=== PATIENT | female | born 2005 | race Caucasian/White ===

== ENCOUNTER 2025-02-02 09:14 | Inpatient (IN) | payer MEDICAID, OTHER ==
[~2025-02-02] VITALS: Ht 162.6 cm; Wt 59.5 kg
--- NOTE | 2025-02-02 10:13 | ED.PDOC ---
SOB-HPI HPI Comments 19 y/o F, presents to the ED for CC of shortness of breath. Patient states, she has been experiencing shortness of breath with associated dizziness [id number] which has now worsened in the last x2days. Patient denies cough, fever, chills, nasal congestion, or chest pain. No other symptoms or modifying factors present at this time. 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 History: Denies all DIE CAST TECHNICIAN Hx Family History Family History: Unknown Social History Smoker: Non-Smoker Alcohol: Denies ETOH Use Drugs: Denies Drug Use Lives In: Home Constitutional: denies: chills, diaphoresis, fatigue, fever, malaise, sweats, weakness, others EENTM: denies: blurred vision, double vision, ear bleeding, ear discharge, ear drainage, ear pain, ear ringing, eye pain, eye redness, hearing loss, mouth pain, mouth swelling, nasal discharge, nose bleeding, nose congestion, nose pain, photophobia, tearing, throat pain, throat swelling, voice changes, others Respiratory: reports: shortness of breath; denies: cough, hemoptysis, orthopnea, SOB at rest, SOB with excertion, stridor, wheezing, others Cardiovascular: denies: chest pain, dizzy spells, diaphoresis, Dyspnea on exertion, edema, irregular heart beat, left arm pain, lightheadedness, palpitations, PND, syncope, others Gastrointestinal: denies: abdomen distended, abdominal pain, blood streaked bowels, constipated, diarrhea, dysphagia, difficulty swallowing, hematemesis, melena, nausea, poor appetite, poor fluid intake, rectal bleeding, rectal pain, vomiting, others Genitourinary: denies: abnormal vagina bleeding, burning, dyspareunia, dysuria, flank pain, frequency, hematuria, incontinence, pain, , vagina discharge, urgency, others Neurological: reports: dizziness; denies: fainting, headache, left sided numbness, left sided weakness, numbness, paresthesia, pre-existing deficit, right sided numbness, right sided weakness, seizure, speech problems, tingling, tremors, weakness, others Musculoskeletal: denies: back pain, gout, joint pain, joint swelling, muscle pain, muscle stiffness, neck pain, others Integumetry: denies: bruises, change in color, change in hair/nails, dryness, laceration, lesions, lumps, rash, wounds, others Allergic/Immunocompromised: denies: Difficulty Healing, Frequent Infections, Hives, Itching, others Hematologic/Lymphatic: denies: anemia, blood clots, easy bleeding, easy bruising, swollen glands, others Endocrine: denies: excessive hunger, excessive sweating, excessive thirst, excessive urination, flushing, intolerance to cold, intolerance to heat, unexplained weight gain, unexplained weight loss, others Psychiatric: denies: anxiety, bipolar disorder, depression, hopeless, panic disorder, schizophrenia, sleepless, suicidal, others All Other Systems: Reviewed and Negative Physical Exam General Appearance: No Apparent Distress, Normal HEENT: Normal ENT Inspection, Pharynx Normal Neck: Full Range of Motion, Non-Tender, Normal, Normal Inspection Respiratory: Chest Non-Tender, Lungs Clear, No Accessory Muscle Use, No Respiratory Distress, Normal Breath Sounds Cardiovascular: No Edema, No Murmur, No Gallop, Normal Peripheral Pulses, Regular Rate/Rhythm Breast Exam: Deferred Gastrointestinal: No Organomegaly, Non Tender, No Pulsatile Mass, Normal Bowel Sounds, Soft Genitalia: Deferred Pelvic: Deferred Rectal: Deferred Extremities: No calf tenderness, Normal capillary refill, Normal inspection, Normal range of motion, Non-tender, No pedal edema Musculoskeletal : Apperance: Normal Neurologic: Alert, exhaust and muffler fitter II-XII nml as Tested, No Motor Deficits, Normal Affect, Normal Mood, No Sensory Deficits Cerebellar Function: Normal Reflexes: Normal Skin: Dry, Normal Color, Warm Lymphatic: No Adenopathy Was a procedure done? Was a procedure done?: No Differential Dx Differential Diagnosis: Asthma, Bronchitis, Pneumonia, Sinusitis, Pharyngitis, URI X-Ray, Labs, Meds, VS Vital Signs Date Time Temp Pulse Resp B/P (MAP) Pulse Ox O2 Delivery O2 Flow Rate FiO2 02/02/25 11:42 69 02/02/25 10:45 80 02/02/25 09:30 97.8 82 16 130/78 (95) 100 97.8 Lab Test 02/02/25 11:06 02/02/25 10:10 Range/Units Troponin I High Sensitivity < 3 L < 3 L </=34 ng/L White Blood Count 7.9 4.4-10.8 10^3/uL Red Blood Count 4.64 4.0-5.20 10^6/uL Hemoglobin 14.4 12.2-16.2 g/dL Hematocrit 42.5 36.0-46.0 % Mean Corpuscular Volume 91.6 80.0-100.0 fL Mean Corpuscular Hemoglobin 31.0 28.0-32.0 pg Mean Corpuscular Hemoglobin Concent 33.8 32.0-36.0 g/dL Red Cell Distribution Width 13.2 11.8-14.3 % Platelet Count 302 140-450 10^3/uL Mean Platelet Volume 8.6 6.9-10.8 fL Neutrophils (%) (Auto) 72.0 37.0-80.0 % Lymphocytes (%) (Auto) 21.9 10.0-50.0 % Monocytes (%) (Auto) 5.3 0.0-12.0 % Eosinophils (%) (Auto) 0.3 0.0-7.0 % Basophils (%) (Auto) 0.5 0.0-2.0 % Neutrophils # (Auto) 5.7 1.6-8.6 10 ^3/uL Lymphocytes # (Auto) 1.7 0.4-5.4 10 ^3/uL Monocytes # (Auto) 0.4 0-1.3 10 ^3/uL Eosinophils # (Auto) 0 0-0.8 10 ^3/uL Basophils # (Auto) 0 0-0.2 10 ^3/uL Nucleated Red Blood Cells 0.0 % Sodium Level 139 136-145 mmol/L Potassium Level 3.8 3.5-5.1 mmol/L Chloride Level 105 98-107 mmol/L Carbon Dioxide Level 26 20-31 mmol/L Anion Gap 8 5-15 Blood Urea Nitrogen 9 9-23 mg/dL Creatinine 0.92 0.550-1.02 mg/dL Glomerular Filtration Rate Calc 91 >90 mL/min BUN/Creatinine Ratio 9.8 L 10.0-20.0 Serum Glucose 98 74-106 mg/dL Calcium Level 10.6 H 8.7-10.4 mg/dL [place] [id number] Ph: [phone] DIAGNOSTIC IMAGING Diagnostic Imaging Report : [id number] Signed PATIENT: YOUSIF PHILLIPS ACCT: [id number] UNIT: [id number] : 2005 LOC: ER ROOM / BED: / AGE / SEX: 19 / F ADM STATUS: REG ER SERVICE 1000 ORDERING PHYSICIAN: DANNA GUZMÁN MD PROCEDURE(s): CXRP - CHEST PORTABLE REASON: chest pain, sob ORDER NUMBER(s): [id number], ACCESSION NUMBER(s): [id number] CHEST RADIOGRAPH Indication: chest pain, sob Technique: Single frontal view of the chest was obtained COMPARISON: None FINDINGS: Lines and Tubes: None Lungs: Clear Pleura: No effusion. No pneumothorax. Cardiomediastinal contours: Unremarkable Bones: Unremarkable IMPRESSION: No acute disease. ATED BY: DAMION ANDREWS MD DICTATED DATE/TIME: 02/02/25 1026 SIGNED BY: DAMION ANDREWS MD SIGNED DATE/TIME: 02/02/25 1026 CC: Time of 1ST Reevaluation: 10:30 Reevaluation 1ST: Unchanged Patient Education/Counseling: Diagnosis, Treatment Family Education/Counseling: No Family Present SEPSIS Sepsis Screen Date sepsis recognized/suspect: Feb 02, 2025 Time Sepsis recognized/suspect: 929 Recent Procedure: No On Antibiotic Therapy: No Respiratory Rate >20: No Heart Rate >90: No Temp<36 C (96.8 F) or >38.3 C: No SBP <90 or MAP <65 mmHG: No New Acute Mental Status Change: No Is the patient on CPAP, BIPAP,: No Physician Orders Chest Portable (02/02/25 10:00) Troponin-I Hs (02/02/25 13:00) Electrocardigram (02/02/25 13:00) Vital Signs Date Time Temp Pulse Resp B/P (MAP) Pulse Ox O2 Delivery O2 Flow Rate FiO2 02/02/25 11:42 69 02/02/25 10:45 80 7/15/25 09:30 97.8 82 16 130/78 (95) 100 97.8 Laboratory Tests Test 02/02/25 10:10 White Blood Count 7.9 10^3/uL (4.4-10.8) Departure 1 Departure Time of Disposition: 12:54 (Patient has a reported history of leaky valves and complex cardiac history and this was to follow up with Cardiology but does not have an appointment till the end of February. Given this history and concern we will admit patientPatient presented with chest pain that was concerning for possible STEMI, ACS, PE, Pneumonia, Muscle Strain, COPD, Dissection. Data: 1. I ordered and reviewed the result of at least 3 labs including a CBC, BMP, and Troponin. 2. I independently interpreted the following tests: EKG which shows sinus arrhythmia and Chest X-ray which shows benign chest.Risk:This patient has a high risk of morbidity due to further diagnostic testing or treatment and may suffer from an acute cardiac or respiratory disorder. Workup reveals concern for ACS and patient should be admitted for further workup and possible expert consultation. ) Impression: Primary Impression: Acute chest pain Additional Impressions: Shortness of breath Palpitations Disposition: ADMITTED INPATIENT Admit to: Med Surg Condition: Serious Critical Care Note Critical Care Time?: Yes Critical care comment: Acute chest pain Authorized and Performed by: Danna Guzmán MD Total critical care time: Approximately 37 minutes Due to a high probability of clinically significant, life threatening deterioration, the patient required my highest level of preparedness to intervene emergently and I personally spent this critical care time directly and personally managing the patient. This critical care time included obtaining a history; examining the patient; pulse oximetry; ordering and review of studies; arranging urgent treatment with development of a management plan; evaluation of patient's response to treatment; frequent reassessment; and, discussions with other providers. This critical care time was performed to assess and manage the high probability of imminent, life-threatening deterioration that could result in multi-organ failure. It was exclusive of separately billable procedures and treating other patients and teaching time. Please see my other sections and the rest of the note for further information on patient assessment and treatment. Stability Stability form required: No Heart Score Heart Score: Heart Score Response (Comments) Value History N/A 0 EKG N/A 0 Age N/A 0 Risk Factors N/A 0 Troponin N/A 0 Total 0 I personally scribed for DANNA GUZMÁN MD ([email or web address]) on 02/02/25 at 10:12. Electronically submitted by Tisha Lazaro ([email or web address]). I personally scribed for DANNA GUZMÁN MD ([email or web address]) on 02/02/25 at 11:35. Electronically submitted by Tisha Lazaro ([email or web address]). DANNA GUZMÁN MD Feb 02, 2025 10:12
[2025-02-02 10:17] LABS: Hematocrit 42.5 % (36.0-46.0); Hemoglobin 14.4 g/dL (12.2-16.2); Mean Corpuscular Hemoglobin 31.0 pg (28.0-32.0); Mean Corpuscular Volume 91.6 fL (80.0-100.0); Nucleated Red Blood Cells % 0.0 %
--- NOTE | 2025-02-02 10:28 | DVH ---
CHEST RADIOGRAPH Indication: chest pain, sob Technique: Single frontal view of the chest was obtained COMPARISON: None FINDINGS: Lines and Tubes: None Lungs: Clear Pleura: No effusion. No pneumothorax. Cardiomediastinal contours: Unremarkable Bones: Unremarkable IMPRESSION: No acute disease.
[2025-02-02 10:34] LABS: Chloride 105 mmol/L (98-107); Potassium 3.8 mmol/L (3.5-5.1); Sodium 139 mmol/L (136-145)
[2025-02-02 10:35] LABS: Anion Gap 8 (5-15); Carbon Dioxide 26 mmol/L (20-31)
[2025-02-02 10:36] LABS: Calcium 10.6 mg/dL (8.7-10.4)
[2025-02-02 10:40] LABS: BUN/Creatinine Ratio 9.8 (10.0-20.0); Blood Urea Nitrogen 9 mg/dL (9-23); Glucose 98 mg/dL (74-106)
--- NOTE | 2025-02-02 10:47 | ECG ---
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
--- NOTE | 2025-02-02 11:43 | ECG ---
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
--- NOTE | 2025-02-02 19:05 | ECG ---
[facility] Test Date: 2025-02-02 Test Time: 13:41:37 Pat Name: YOUSIF PHILLIPS Department: ER Room: Gender: F Development Manager: GAYATRI : 2005 Requested By: DANNA STEWART Order Number: [id number] Reading MD: Measurements Intervals [place] Rate: 61 P: 67 AK: 137 QRS: 75 QRSD: 91 T: 54 QT: 423 QTc: 426 Interpretive Statements Sinus arrhythmia RSR' in V1 or V2, right VCD or RVH Please click the below link to view image of tracing.
--- NOTE | 2025-02-02 22:51 | DVHHP2 ---
History of Present Illness History of Present Illness This is a 19-year-old female with past medical history of Anxiety disorder, Migraine not on any medication came to ED with the complain of retrosternal chest pain for 2 weeks which is worsen for last 3 days, localized, 5-7/10 intensity, aggravated on exertion and relieved on rest. Patient also complain of chest pain associated with shortness of breaths but no wheezing. She had a history of syncope 1 years ago. [facility] reported pulmonary and mitral valvular disease. H/O anxiety disorder/panic disorder seen by psychiatrist who prescribed Desvenlafaxine and stopped 2 months ago due to side effect of the medication. Patient never follow-up with animal care taker. Currently denies any cough, shortness of breaths, headache, photophobia, abdominal pain, dysuria, any focal weakness, fever. Past Medical History: anxiety disorder, migraine Surgical History: Denies all surgeries OBGYN History: LMP 3 weeks back Family History: Unknown Social History Smoker: Non-Smoker Alcohol: Denies ETOH Use Drugs: Denies Drug Use Lives In: Home Allergy: No known allergies PCP: Not selected Review of Systems Constitutional: No: Fever, Chills, Sweats, Weakness, Malaise, Other Eyes: No: Pain, Vision change, Conjunctivae inflammation, Eyelid inflammation, Other, Redness ENT: No: Ear pain, Ear discharge, Nose pain, Nose discharge, Nose congestion, Mouth pain, Mouth swelling, Throat pain, Throat swelling, Other Respiratory: SOB with excertion; No: Cough, Dry, Shortness of breath, Wheezing, Hemoptysis, Pleuritic Pain, Sputum, Wheezing, Other Cardiovascular: Chest Pain; No: Palpitations, Orthopnea, Paroxysmal Noc. Dy spnea, Edema, Lt Headedness, Other Gastrointestinal: No: Nausea, Vomiting, Abdominal Pain, Diarrhea, Constipation, Melena, Hematochezia, Other Genitourinary: No Dysuria, No Frequency, No Incontinence, No Hematuria, No Retention, No Other Musculoskeletal: No: other, neck pain, shoulder pain, arm pain, back pain, hand pain, leg pain, foot pain Skin: No: Rash, Lesions, Jaundice, Bruising, Other Neurological: No: Weakness, Numbness, Incoordination, Change in speech, Confusion, Seizures, Other Allergies: Coded Allergies: NO KNOWN ALLERGIES (Unverified , 02/02/25) Exam Vital Signs Vital Signs Date Time Temp Pulse Resp B/P (MAP) Pulse Ox O2 Delivery O2 Flow Rate FiO2 02/02/25 18:15 Room Air* 0 21 02/02/25 17:47 97.6 89 17 125/76 (92) 100 97.6 General Appearance: Alert, Oriented X3, Cooperative, No acute distress HEENT: Atraumatic, PERRLA, EOMI Respiratory: Clear to auscultation, Normal air movement Cardiovascular: Regular rate, Normal S1, Normal S2 Abdominal: Normal bowel sounds, No tenderness, No hepatospenomegaly, No masses Extremities: No clubbing, No cyanosis, No edema, Normal pulses Skin: No breakdown Neuro: Normal gait, Normal speech, Strength at 5/5 X4 ext Labs/Xrays Labs Test 02/02/25 13:28 02/02/25 10:10 Range/Units Troponin I High Sensitivity < 3 L </=34 ng/L White Blood Count 7.9 4.4-10.8 10^3/uL Red Blood Count 4.64 4.0-5.20 10^6/uL Hemoglobin 14.4 12.2-16.2 g/dL Hematocrit 42.5 36.0-46.0 % Mean Corpuscular Volume 91.6 80.0-100.0 fL Mean Corpuscular Hemoglobin 31.0 28.0-32.0 pg Mean Corpuscular Hemoglobin Concent 33.8 32.0-36.0 g/dL Red Cell Distribution Width 13.2 11.8-14.3 % Platelet Count 302 140-450 10^3/uL Mean Platelet Volume 8.6 6.9-10.8 fL Neutrophils (%) (Auto) 72.0 37.0-80.0 % Lymphocytes (%) (Auto) 21.9 10.0-50.0 % Monocytes (%) (Auto) 5.3 0.0-12.0 % Eosinophils (%) (Auto) 0.3 0.0-7.0 % Basophils (%) (Auto) 0.5 0.0-2.0 % Neutrophils # (Auto) 5.7 1.6-8.6 10 ^3/uL Lymphocytes # (Auto) 1.7 0.4-5.4 10 ^3/uL Monocytes # (Auto) 0.4 0-1.3 10 ^3/uL Eosinophils # (Auto) 0 0-0.8 10 ^3/uL Basophils # (Auto) 0 0-0.2 10 ^3/uL Nucleated Red Blood Cells 0.0 % Sodium Level 139 136-145 mmol/L Potassium Level 3.8 3.5-5.1 mmol/L Chloride Level 105 98-107 mmol/L Carbon Dioxide Level 26 20-31 mmol/L Anion Gap 8 5-15 Blood Urea Nitrogen 9 9-23 mg/dL Creatinine 0.92 0.550-1.02 mg/dL Glomerular Filtration Rate Calc 91 >90 mL/min BUN/Creatinine Ratio 9.8 L 10.0-20.0 Serum Glucose 98 74-106 mg/dL Calcium Level 10.6 H 8.7-10.4 mg/dL SEPSIS Sepsis Screen Date sepsis recognized/suspect: Feb 02, 2025 Time Sepsis recognized/suspect: 1908 Recent Procedure: No On Antibiotic Therapy: No Respiratory Rate >20: No Heart Rate >90: No Temp<36 C (96.8 F) or >38.3 C: No SBP <90 or MAP <65 mmHG: No New Acute Mental Status Change: No Is the patient on CPAP, BIPAP,: No Physician Orders Admit (02/02/25 22:48) Nitroglycerin Sublingual (Ntrostat Subli (02/02/25 23:00) Morphine Sulfate Injection (02/02/25 23:00) Oxygen By Nasal Cannula (02/02/25 22:48) Stat Ekg For Chest Pain (02/02/25 22:48) Notify Md Of Changes From Base (02/02/25 22:48) Cocoa Bean Cleaner For 24 Hours (02/02/25 22:48) Emergency Dysrhythmia Protocol (02/02/25 22:48) Rhythm Strips Once Every Shift (02/02/25 22:48) Vital Signs Date Time Temp Pulse Resp B/P (MAP) Pulse Ox O2 Delivery O2 Flow Rate FiO2 02/02/25 18:15 Room Air* 0 21 02/02/25 17:47 97.6 89 17 125/76 (92) 100 97.6 Assessment/Plan Assessment/Plan # CHEST PAIN RULE OUT ACS POSSIBLE UNSTABLE ANGINA -patient came with chest pain and exertional SOB -EKG:, sinus rhythm, HR 61 QTC 426 -CXR-No acute disease. -Troponin x 3-negative (<3 ,<3, <3) -Aspirin 81 mg p.o. daily -Atorvastatin 40 mg p.o. daily -BNP, HBA1C, Lipid profile, uds, TSH -Echo -Cardiology consult # ANXIETY DISORDER -Stopped Desvenlafaxine due to side effect of medication -Psychiatry follow-up outpatient # HYPERCALCEMIA LIKELY DEHYDRATION -Calcium level 10.6 -Encourage oral fluid intake -BMP #H/o Pulmonary and Mitral regurgitation -As per pt, echo done and mentioned valvular heart disease -Echo order DIET: Regular GI prophylaxis: Famotidine 20 mg p.o. b.i.d. DVT prophylaxis: Patient ambulating Goals of care discussions, more than 26 minute spent. Full code status. Case discussed with Dr. Rao Plan discussed with: Patient, Other (Nurse) My Orders Orders - MERT ROSADO Procedure Category Date Status Time Admit ADMIT 02/02/25 Transmitted 22:48 Nitroglycerin [facility] 02/02/25 Transmitted Sublingual (Ntrostat 23:00 Morphine Sulfate PHA 02/02/25 Transmitted Injection 23:00 Oxygen By Nasal RT 02/02/25 Transmitted Cannula 22:48 Stat Ekg For Chest [facility] 02/02/25 Transmitted Pain 22:48 Notify Md Of Changes [facility] 02/02/25 Transmitted From Base 22:48 Cocoa Bean Cleaner For [facility] 02/02/25 Transmitted 24 Hours 22:48 Emergency Dysrhythmia [facility] 02/02/25 Transmitted Protocol 22:48 Rhythm Strips Once [facility] 02/02/25 Transmitted Every Shift 22:48 Date of Service: Feb 02, 2025 Billing Provider: MERT RAO Common Visit Codes: [id number] INP/OBS CARE (HIGH) Secondary Visit Codes: [id number] CARE PLAN 30 MINUTES MERT ROSADO Feb 02, 2025 22:51
[2025-02-02] MEDS ORDERED: NITROGLYCERIN 0.4 MG SL TAB SL PRN (23:00)
[2025-02-02] MEDS ORDERED: MORPHINE SULFATE INJ 2 MG/ml SYRG IV PRN (23:00)
[2025-02-03] VITALS (8 sets, daily range): BP systolic 102–116; BP diastolic 66–79; PULSE 56–76; RESP 16–21; TEMP 97.8–98.6; O2SAT 93–100
[2025-02-03] MEDS: ATORVASTATIN 20 MG TAB PO ONE (00:17)
[2025-02-03 06:57] LABS: Alanine Aminotransferase 11 U/L (7-40); Albumin 4.7 g/dL (3.2-4.8); Alkaline Phosphatase 69 U/L (46-116); Anion Gap 10 (5-15); BUN/Creatinine Ratio 11.5 (10.0-20.0); Calcium 10.0 mg/dL (8.7-10.4); Carbon Dioxide 24 mmol/L (20-31); Chloride 106 mmol/L (98-107); Cholesterol 160 mg/dL (< 200); Glucose 99 mg/dL (74-106); HDL Cholesterol 50 mg/dL (40-59); Potassium 3.8 mmol/L (3.5-5.1); Sodium 140 mmol/L (136-145); Total Protein 7.1 g/dL (5.7-8.2); Triglycerides 60 mg/dL (< 150)
[2025-02-03 06:58] LABS: Bilirubin, Total 0.5 mg/dL (0.2-1.0)
[2025-02-03 06:59] LABS: Blood Urea Nitrogen 9 mg/dL (9-23)
--- NOTE | 2025-02-03 10:48 | DVHINCON2 ---
Date Seen: Feb 03, 2025 Referring Physician MD Porfirio resident Reason for Consultation Chest pain, rule out ACS History of Present Illness This is a 19-year-old female patient who presents to emergency room with chief complaint of chest pain and shortness of breath for approximately two weeks. The patient reports that she has been experiencing intermittent chest pain for the last two weeks and decided to come to the emergency room for further evaluation. She describes the pain as unprovoked, intermittent, dull in nature, midsternal and nonradiating. Associated symptoms include shortness of breath. Initial twelve lead electrocardiogram reveals normal sinus rhythm without any significant ST segment changes. Serial troponin levels have been negative. Significant past medical history includes "leaky valves" as per patient report and migraines. Past Medical History Past medical history reviewed. No other significant than mentioned above. Past Surgical History Denies any previous surgeries Family History: Patient reports no known family medical history. Family History Family history reviewed. Social History Denies the use of tobacco, alcohol or illicit drugs. Allergies: Coded Allergies: NO KNOWN ALLERGIES (Unverified , 02/02/25) Home Meds No Active Prescriptions or Reported Meds Home Meds Denies taking any prescribed medications Current Medications Current Medications Medications (Trade) Dose Ordered Sig/[place] Route PRN Reason Start Time Stop Time Status Last Admin Nitroglycerin (Ntrostat Sublingual) 0.4 mg Q5MINP PRN SL FOR CHEST PAIN 02/02/25 23:00 02/03/25 10:07 DC Morphine Sulfate 2 mg Q30M PRN IV FOR CHEST PAIN 02/02/25 23:00 02/03/25 10:07 DC Aspirin 81 mg DAILY PO 02/03/25 10:00 02/03/25 09:36 Atorvastatin Calcium (Lipitor) 40 mg HS PO 02/03/25 22:00 Review of Systems Constitutional: No symptom reported Ears, Nose, & Throat: No symptom reported Eyes: No symptom reported Neurological: No symptoms reported Pulmonary/Respiratory: Shortness of breath Cardiovascular: Chest pain Gastrointestinal: No symptom reported Genitourinary: No symptom reported Musculoskeletal: No symptom reported Skin: No symptom reported Psychiatric: No symptom reported Endocrine: No symptom reported Hematologic/Lymphatic: No symptom reported Vital Signs Vital Signs Date Time Temp Pulse Resp B/P (MAP) Pulse Ox O2 Delivery O2 Flow Rate FiO2 02/03/25 08:47 97.8 56 21 112/72 (85) 99 97.8 02/03/25 02:24 Room Air* 0 21 Physical Exam General Appearance: Cooperative. Well-developed. Well-nourished. No acute distress. Pulmonary/Respiratory: Clear, bilateral breaths sounds. Cardiovascular/Chest: Regular rate and rhythm. Peripheral Pulses: 2+ Radial (R). 2+ Radial (L). 2+ Pedal (R). 2+ Pedal (L) Abdominal Exam: Normal bowel sounds. Ankle Exam: Negative ankle edema Lower extremities: Negative lower extremity edema Neuro/Mental Status: A/OX4, coherent. Thoughts/Psych: Normal thought pattern. Appropriate mood and affect. Good judgment and insight. Appearance: No acute distress. Skin Exam: Normal inspection. Normal color. Warm and dry. Labs/Diagnostic Data Labs Test 02/03/25 05:50 02/02/25 13:28 02/02/25 10:10 Range/Units Sodium Level 140 136-145 mmol/L Potassium Level 3.8 3.5-5.1 mmol/L Chloride Level 106 98-107 mmol/L Carbon Dioxide Level 24 20-31 mmol/L Anion Gap 10 5-15 Blood Urea Nitrogen 9 9-23 mg/dL Creatinine 0.78 0.550-1.02 mg/dL Glomerular Filtration Rate Calc 111 >90 mL/min BUN/Creatinine Ratio 11.5 10.0-20.0 Serum Glucose 99 74-106 mg/dL Hemoglobin A1c 5.4 <5.7 % A1C Calcium Level 10.0 8.7-10.4 mg/dL Total Bilirubin 0.5 0.2-1.0 mg/dL Aspartate Amino Transferase (AST) 17 13-40 U/L Alanine Aminotransferase (ALT) 11 7-40 U/L Alkaline Phosphatase 69 46-116 U/L B-Type Natriuretic Peptide 6.46 0-100 pg/mL Total Protein 7.1 5.7-8.2 g/dL Albumin 4.7 3.2-4.8 g/dL Triglycerides Level 60 < 150 mg/dL Cholesterol Level 160 < 200 mg/dL LDL Cholesterol 106 H < 100 mg/dL HDL Cholesterol 50 40-59 mg/dL Thyroid Stimulating Hormone (TSH) 1.24 0.55-4.78 uIU/mL Troponin I High Sensitivity < 3 L </=34 ng/L White Blood Count 7.9 4.4-10.8 10^3/uL Red Blood Count 4.64 4.0-5.20 10^6/uL Hemoglobin 14.4 12.2-16.2 g/dL Hematocrit 42.5 36.0-46.0 % Mean Corpuscular Volume 91.6 80.0-100.0 fL Mean Corpuscular Hemoglobin 31.0 28.0-32.0 pg Mean Corpuscular Hemoglobin Concent 33.8 32.0-36.0 g/dL Red Cell Distribution Width 13.2 11.8-14.3 % Platelet Count 302 140-450 10^3/uL Mean Platelet Volume 8.6 6.9-10.8 fL Neutrophils (%) (Auto) 72.0 37.0-80.0 % Lymphocytes (%) (Auto) 21.9 10.0-50.0 % Monocytes (%) (Auto) 5.3 0.0-12.0 % Eosinophils (%) (Auto) 0.3 0.0-7.0 % Basophils (%) (Auto) 0.5 0.0-2.0 % Neutrophils # (Auto) 5.7 1.6-8.6 10 ^3/uL Lymphocytes # (Auto) 1.7 0.4-5.4 10 ^3/uL Monocytes # (Auto) 0.4 0-1.3 10 ^3/uL Eosinophils # (Auto) 0 0-0.8 10 ^3/uL Basophils # (Auto) 0 0-0.2 10 ^3/uL Nucleated Red Blood Cells 0.0 % Assessment Chest pain, likely noncardiac Rule out structural heart disease Migraine Plan/Recommendation We will continue with the following plan/recommendations (Dr. Larson): We will proceed with obtaining a transthoracic echocardiogram to evaluate cardiac function. HEART score: 0 points. Given patient clinical presentation, unremarkable 12 lead electrocardiogram, and negative troponin level, doubt ACS. In the setting of an unremarkable transthoracic echocardiogram, there is no further inpatient cardiac workup indicated at this time. The patient may proceed with outpatient cardiac workup if deemed necessary. Thank you for allowing us to care for this patient. Please call with any questions or concerns. Critical care time spent: 44 minutes This medical document was created using an electronic medical record system with voice recognition software and computerized dictation system. Although this document has been carefully reviewed, there might still be some phonetic and typographical errors. Occasional wrong-word or ``sound-alike substitutions may have occurred due to the inherent limitations of voice recognition software. These areas are purely typographical due to imperfections of the software programs and do not reflect any compromise in the patient's medical care. Please read the chart carefully and recognize, using context, where these substitutions have occurred. Plan discussed with: Patient NYHA Physical activity limitations: NA Date of Service: Feb 03, 2025 Billing Provider: BENJAMIN LYONS Cardiology Common Codes: 56511-GMHBVBP INP/OBS CARE (High) Cardiology Consultation Codes: 27934-RFDNYRDQO CONSULT <45MIN BENJAMIN LYONS Feb 03, 2025 10:47
--- NOTE | 2025-02-03 16:52 | DVHPNRES ---
Progress Note Date Seen: Feb 03, 2025 Resident Creating Document: BERTHA URIAS RESIDENT Medical Necessity Reason Pt with a Central, PICC or Fol: No Subjective Review of Systems Patient is a 19-year-old female with prior medical history of chronic migraines, generalized anxiety disorder, panic attacks, refers tricuspid and pulmonary regurgitation , who presented to the ED with chief complaint of chest pain and shortness of breath. Patient states she she has had chest pain described as intermittent retrosternal, ache-like, intensity of 5/10, non-radiating, is worse in the mornings, aggravated by physical activity and relieved by rest. States this is associated with shortness of breath usually on exertion, but day before presentation was present rest, which prompted her to seek medical care. She denies nausea, vomiting, fever, palpitations, dizziness, and loss of consciousness. Vitals were within normal limits. Initial 12 lead EKG shows normal sinus rhythm without ST changes. Initial labs WBC 7.9, hemoglobin 14.4, hematocrit 42.5, MCV 91.6, MCH 31.0, platelets 302, D-dimer <0.19, troponins negative, and TSH 1.24. Chest x-ray no acute disease. Patient was admitted for further workup and monitoring. Surgical: None Social: Denies drug and tobacco use. Refers occasional alcohol use. Patient seen at bedside. States she feels well, is eating, and ambulating without dizziness or difficulty. Currently denies chest pain, shortness of breath, palpitations, dizziness, and symptoms. She was seen by Cardiology who state that in the setting of an unremarkable transthoracic echocardiogram, there is no further inpatient cardiac workup indicated and patient may proceed with outpatient cardiac workup if deemed necessary. We will continue to monitor, possible discharge tomorrow pending echocardiogram report. Review of systems: Constitutional: Denies weight loss, fever and chills. HEENT: Denies changes in vision and hearing. Respiratory: Denies shortness of breath and cough Cardiovascular: Denies chest discomfort or palpitations GI: Denies abdominal distention, abdominal pain, diarrhea : Denies dysuria and urinary frequency. Musculoskeletal: Denies myalgias and joint pain Skin: Denies rash and pruritus. Neurological: denies dizziness headache vision or hearing problems Objective vital signs Vital Sign Date Time Temp Pulse Resp B/P (MAP) Pulse Ox O2 Delivery O2 Flow Rate FiO2 02/03/25 12:53 98.6 66 16 114/79 (91) 99 98.6 02/03/25 08:00 Room Air* 0 21 Total Intake and Output 02/02/25 02/02/25 02/03/25 15:00 23:00 07:00 Intake Total 0 ml Balance 0 ml medications Current Medications Medications Dose Ordered Sig/[place] Route Start Time Stop Time Status Last Admin Dose Admin Aspirin 81 mg DAILY PO 02/03/25 10:00 02/03/25 09:36 81 MG Atorvastatin Calcium 40 mg HS PO 02/03/25 22:00 Examination General: The patient alert and oriented in person place and time. Patient following commands HEENT: Normocephalic a, atraumatic, moist mucous membrane Respiratory/pulmonary: Clear lungs bilaterally, vesicular murmurs present in almost all lung moe, no associated crackles or wheezes. Cardiovascular: Normal rate, S3 present Abdomen: Abdomen nondistended, there is no pain to palpation in any of the abdominal quadrants, no palpable masses. Extremities: there is no peripheral edema present at the lower extremities. Peripheral pulses 3+ radial right, 3+ radials soft. 3+ dorsalis pedis right. 3+ dorsalis pedis left Skin: No rashes or pruritus, there is no sacral edema present at this time. Neurological: Intact cranial nerves with no focal neurologic deficits laboratory and microbiology Laboratory Tests 02/03/25 05:50 02/02/25 10:10 Test 02/03/25 05:50 Range/Units Serum Glucose 99 74-106 mg/dL Problem List/Assessment/Plan Problem List/Assessment/Plan Assessment and Plan: Acute Chest Pain, Ruled out ACS -Aspirin: 81 mg PO daily -Atorvastatin: 40 mg PO -Pending echocardiogram report -Per cardiology: state that in the setting of an unremarkable transthoracic echocardiogram, there is no further inpatient cardiac workup indicated and patient may proceed with outpatient cardiac workup if deemed necessary. History of Valvular Disease History of General Anxiety History of Chronic Migraines DVT prophylaxis: Ambulating Case discussed with Dr. Venegas. Goals of care discussed with patient for over 20 minutes. She states she understands and agrees. Plan discussed with: Patient Date of Service: Feb 03, 2025 Billing Provider: EDA VENEGAS MD Common Visit Codes: [id number] INP/OBS CARE(HIGH) BERTHA URIAS RESIDENT Feb 03, 2025 16:52 EDA VENEGAS MD Feb 03, 2025 22:08
[2025-02-03 17:35] LABS: Urine Protein, UAD Negative (Negative)
[2025-02-03 18:19] LABS: Amphetamine Screen, Urine Neg (NEGATIVE); Barbiturate Scree,Urine Neg (NEGATIVE); Benzodiazephine Screen, Urine Neg (NEGATIVE); Cannabinoid Screen, Urine Neg (NEGATIVE); Cocaine Screen, Urine Neg (NEGATIVE); Opiate Scree,Urine Neg (NEGATIVE); Phencyclidine Screen, Urine Neg (NEGATIVE)
[2025-02-03] MEDS: ATORVASTATIN 20 MG TAB PO SCH (21:19)
[2025-02-04 01:00] VITALS: BP 121/74; PULSE 53; RESP 17; TEMP 97.8; O2SAT 98
[2025-02-04 05:00] VITALS: BP 111/74; PULSE 55; RESP 17; TEMP 98; O2SAT 100
[2025-02-04 05:18] LABS: Hematocrit 41.3 % (36.0-46.0); Hemoglobin 13.7 g/dL (12.2-16.2); Mean Corpuscular Hemoglobin 30.6 pg (28.0-32.0); Mean Corpuscular Volume 92.0 fL (80.0-100.0); Nucleated Red Blood Cells % 0.1 %
[2025-02-04 05:29] LABS: Anion Gap 9 (5-15); Carbon Dioxide 27 mmol/L (20-31); Chloride 106 mmol/L (98-107); Potassium 3.8 mmol/L (3.5-5.1); Sodium 142 mmol/L (136-145)
[2025-02-04 05:30] LABS: Calcium 10.3 mg/dL (8.7-10.4)
[2025-02-04 05:35] LABS: BUN/Creatinine Ratio 12.5 (10.0-20.0); Blood Urea Nitrogen 11 mg/dL (9-23); Glucose 93 mg/dL (74-106)
[2025-02-04 08:00] VITALS: PULSE 91
--- NOTE | 2025-02-04 08:14 | ECG ---
[facility] Test Date: 2025-02-03 Test Time: 20:00:40 Pat Name: YOUSIF PHILLIPS Department: Respiratoy Room: [facility]6T B Gender: F Pediatric Associate: LAN : 2005 Requested By: MERT ROSADO Order Number: [id number] Reading MD: Measurements Intervals [place] Rate: 61 P: 45 WV: 138 QRS: 59 QRSD: 93 T: 56 QT: 401 QTc: 404 Interpretive Statements Sinus rhythm Please click the below link to view image of tracing.
[2025-02-04 09:00] VITALS: BP 107/63; PULSE 52; RESP 18; TEMP 98.1; O2SAT 99
[2025-02-04] MEDS ORDERED: FAMO20TA10 PO (10:49)
[2025-02-04 12:30] VITALS: BP 119/70; PULSE 71; RESP 18; TEMP 97.6; O2SAT 98
[2025-02-04 12:58] VITALS: TEMP 36.7
--- NOTE | 2025-02-04 16:48 | DVHDSRES ---
Discharge Summary Date of Admission Resident Creating Document: BETRHA URIAS RESIDENT Feb 02, 2025 at 22:48 Date of Discharge: Feb 04, 2025 Admitting Diagnosis Acute Chest Pain Wounds: None Labs/Diagnostic Data: Laboratory Results Test 02/04/25 04:15 02/03/25 17:30 02/03/25 10:55 02/03/25 05:50 White Blood Count 7.5 10^3/uL (4.4-10.8) Red Blood Count 4.48 10^6/uL (4.0-5.20) Hemoglobin 13.7 g/dL (12.2-16.2) Hematocrit 41.3 % (36.0-46.0) Mean Corpuscular Volume 92.0 fL (80.0-100.0) Mean Corpuscular Hemoglobin 30.6 pg (28.0-32.0) Mean Corpuscular Hemoglobin Concent 33.2 g/dL (32.0-36.0) Red Cell Distribution Width 13.0 % (11.8-14.3) Platelet Count 286 10^3/uL (140-450) Mean Platelet Volume 8.8 fL (6.9-10.8) Neutrophils (%) (Auto) 43.6 % (37.0-80.0) Lymphocytes (%) (Auto) 47.1 % (10.0-50.0) Monocytes (%) (Auto) 7.9 % (0.0-12.0) Eosinophils (%) (Auto) 0.9 % (0.0-7.0) Basophils (%) (Auto) 0.5 % (0.0-2.0) Neutrophils # (Auto) 3.3 10 ^3/uL (1.6-8.6) Lymphocytes # (Auto) 3.5 10 ^3/uL (0.4-5.4) Monocytes # (Auto) 0.6 10 ^3/uL (0-1.3) Eosinophils # (Auto) 0.1 10 ^3/uL (0-0.8) Basophils # (Auto) 0 10 ^3/uL (0-0.2) Nucleated Red Blood Cells 0.1 % Sodium Level 142 mmol/L (136-145) Potassium Level 3.8 mmol/L (3.5-5.1) Chloride Level 106 mmol/L (98-107) Carbon Dioxide Level 27 mmol/L (20-31) Anion Gap 9 (5-15) Blood Urea Nitrogen 11 mg/dL (9-23) Creatinine 0.88 mg/dL (0.550-1.02) Glomerular Filtration Rate Calc 96 mL/min (>90) BUN/Creatinine Ratio 12.5 (10.0-20.0) Serum Glucose 93 mg/dL (74-106) Calcium Level 10.3 mg/dL (8.7-10.4) Urine Color Light-yellow (Yellow) Urine Clarity Turbid (Clear) Urine pH 7.0 (5.0-9.0) Urine Specific [place] 1.007 (1.001-1.035) Urine Protein Negative (Negative) Urine Ketones Negative (Negative) Urine Blood Negative /uL (Negative) Urine Nitrite Negative (Negative) Urine Bilirubin Negative (Negative) Urine Urobilinogen Normal mg/dL (Negative) Urine Leukocyte Esterase 2+ /uL (Negative) Urine RBC 2 /hpf (0 - 4) Urine Microscopic WBC 5 /HPF (0-5) Urine Squamous Epithelial Cells Few /hpf (<5) Urine Bacteria Mod /hpf (None Seen) Urine Glucose Normal mg/dL (Normal) D-Dimer, Quantitative < 0.19 mg/L FEU (0.0-0.49) Erythrocyte Sedimentation Rate 6 mm/hr (0-20) Hemoglobin A1c 5.4 % A1C (<5.7) Total Bilirubin 0.5 mg/dL (0.2-1.0) Aspartate Amino Transferase (AST) 17 U/L (13-40) Alanine Aminotransferase (ALT) 11 U/L (7-40) Alkaline Phosphatase 69 U/L (46-116) C-Reactive Protein High Sensitivity 0.03 mg/dL (<1.0) B-Type Natriuretic Peptide 6.46 pg/mL (0-100) Total Protein 7.1 g/dL (5.7-8.2) Albumin 4.7 g/dL (3.2-4.8) Triglycerides Level 60 mg/dL (< 150) Cholesterol Level 160 mg/dL (< 200) LDL Cholesterol 106 mg/dL (< 100) HDL Cholesterol 50 mg/dL (40-59) Thyroid Stimulating Hormone (TSH) 1.24 uIU/mL (0.55-4.78) Test 7/16/25 02:04 02/02/25 13:28 Urine Opiates Screen Neg (NEGATIVE) Urine Fentanyl Screen Neg (NEGATIVE) Urine Barbiturates Screen Neg (NEGATIVE) Urine Phencyclidine Screen Neg (NEGATIVE) Urine Amphetamines Screen Neg (NEGATIVE) Urine Benzodiazepines Screen Neg (NEGATIVE) Urine Cocaine Screen Neg (NEGATIVE) Urine Cannabinoids Screen Neg (NEGATIVE) Troponin I High Sensitivity < 3 ng/L (</=34) Other Laboratory Tests 02/04/25 04:15 Brief Hx & Hospital Course: Patient is a 19-year-old female with prior medical history of chronic migraines, generalized anxiety disorder, panic attacks, refers tricuspid and pulmonary regurgitation , who presented to the ED with chief complaint of chest pain and shortness of breath. Patient states she she has had chest pain described as intermittent retrosternal, ache-like, intensity of 5/10, non-radiating, is worse in the mornings, aggravated by physical activity and relieved by rest. States this is associated with shortness of breath usually on exertion, but day before presentation was present rest, which prompted her to seek medical care. She denies nausea, vomiting, fever, palpitations, dizziness, and loss of consciousness. Vitals were within normal limits. Initial 12 lead EKG shows normal sinus rhythm without ST changes. Initial labs WBC 7.9, hemoglobin 14.4, hematocrit 42.5, MCV 91.6, MCH 31.0, platelets 302, D-dimer <0.19, troponins negative, and TSH 1.24. Chest x-ray no acute disease. Patient was admitted for further workup and monitoring. She was started on a regimen of aspirin and atorvastatin during her stay. She was seen by Cardiology who state that in the setting of an unremarkable transthoracic echocardiogram, there is no further inpatient cardiac workup indicated and patient may proceed with outpatient cardiac workup if deemed necessary. She presented another episode of chest pain, however EKG done at the time showed sinus rhythm with no ST changes. On evaluation today, patient stated she felt well, sleeping well, ambulating without difficulty or shortness of breath, and tolerating diet. Today's labs were within normal range and vitals remained stable. Aspirin and atorvastatin were discontinued, and she was started on Pepcid due to suspicion of chest pain related to GERD. She is considered stable for discharge with recommendations to follow up with her PCP and set up care with a apartment maintenance technician for further work up upon return to [place]. Physical Exam: General: The patient alert and oriented in person place and time. Patient following commands HEENT: Normocephalic a, atraumatic, moist mucous membrane Respiratory/pulmonary: Clear lungs bilaterally, vesicular murmurs present in almost all lung moe, no associated crackles or wheezes. Cardiovascular: Normal rate, S3 present Abdomen: Abdomen nondistended, there is no pain to palpation in any of the abdominal quadrants, no palpable masses. Extremities: there is no peripheral edema present at the lower extremities. Peripheral pulses 3+ radial right, 3+ radials soft. 3+ dorsalis pedis right. 3+ dorsalis pedis left Skin: No rashes or pruritus, there is no sacral edema present at this time. Neurological: Intact cranial nerves with no focal neurologic deficits Case discussed with Dr. Escalante. Goals of care discussed with the patient for over 25 minutes. She states she understands and agrees. Operations or Procedures CHEST RADIOGRAPH Indication: chest pain, sob Technique: Single frontal view of the chest was obtained COMPARISON: None FINDINGS: Lines and Tubes: None Lungs: Clear Pleura: No effusion. No pneumothorax. Cardiomediastinal contours: Unremarkable Bones: Unremarkable IMPRESSION: No acute disease. Condition at Discharge: Stable Final Diagnosis/Problems List Acute Chest Pain, Ruled out ACS, likely secondary to GERD History of Valvular Disease History of General Anxiety History of Chronic Migraines Discharge Disposition: Home Discharge Instruct/Medications Diet: Regular Activity: No Restrictions, As Tolerated Follow Up/Referral: Follow up with PCP in 1-2 weeks Medications: Pepcid Scheduled Famotidine (Pepcid Tablet), 1 TAB PO BID Discharge Statement: "Patient was advised to return to the ER or call 911 if any headaches, dizziness, shortness of breath, chest pain, abdominal pain, bleeding, fevers, or worsening of medical condition. Patient was counseled about treatment plan, medications, possible side effects, patientverbalized understanding. All questions were answered to the best of my ability. This discharge took greater then 30 minutes in planning, reviewing documentation, counseling the patient, and discussing with other team members." ASSESSMENT ASSESSMENT Assessment Acute Chest Pain, possibly due to GERD -Ruled out ACS BERTHA URIAS RESIDENT Feb 04, 2025 16:48
--- NOTE | 2025-02-04 17:54 | DVHSR ---
APPROVED REPORT EXAM: Two-dimensional and M-mode echocardiogram with Doppler, color Doppler and Bubble Study. Blood Pressure: 102/71 mmHg INDICATION Chest Pain Syncope RISK FACTORS Height: 5'4", Weight: 126 DIMENSIONS LVDd4.4 (3.8-5.7cm)LA (2D)3.6 (1.9-4.0cm)Aortic Root2.7 (2.0-3.7cm) LVDs2.9 (2.5-4.0cm)LA (MM) (1.9-4.0cm)Aortic Cusp Exc1.9 (1.5-2.0cm) EF (%) 62.0 (55-70%)Rt. Atrium2.7 (1.9-4.0cm)Asc. Aorta2.5 cm IVSd0.6 (0.7-1.1cm)RV (D)3.0 (1.8-2.4cm) PWd0.6 (0.7-1.1cm) Mitral Valve MitralMitral Stenosis E wave0.73m/sMV Mean GR.mmHg A wave0.48m/sMV Peak GR.mmHg E/A ratio1.52D MVAcm2 DECEL [id number] 1/2 Tim[place] Aortic Valve Aortic ValveAortic Stenosis V10.85m/Paige Mean GR.3mmHg V21.03m/Paige Peak GR.4mmHg LVOT Diameter2.1 (1.8-2.4cm)Doppler AVA2.86cm2 Pulmonic Valve V20.95m/s Other Information Quality : Technically LimitedRhythm : Conclusion LVEF 50-55%, RV normal size and function No significant valve disease
== END 2025-02-04 14:25 | disposition home or self-care (01) | DRG 243 ==
LOC: ER 09:14 → TELE-WESTW 22:48 → OVERFLOW 22:48 → TELE-WESTW 02-03 01:56
PROVIDERS: ADMIT Student in an Organized Health Care Education/Training Program; ATTEND Student in an Organized Health Care Education/Training Program
DX: K21.9 Gastro-esophageal reflux disease without esophagitis (principal); E83.52 Hypercalcemia; F41.0 Panic disorder [episodic paroxysmal anxiety]; G43.909 Migraine, unspecified, not intractable, without status migrainosus; F41.1 Generalized anxiety disorder; Z86.59 Personal history of other mental and behavioral disorders; Z79.899 Other long term (current) drug therapy; Z79.82 Long term (current) use of aspirin
CPT/HCPCS: 36415; 71045; 80048; 80053; 80061; 80307; 81001; 83036; 83880; 84443; 84484; 85025; 85379; 85652; 86141; 93005; 93306; 99291; G0378